=== PATIENT | female | born 2005 | race Caucasian/White ===

== ENCOUNTER 2024-01-27 09:43 | Emergency (ER) | payer OTHER, SELFPAY ==
[2024-01-27 09:47] VITALS: BP 141/94
--- NOTE | 2024-01-27 11:51 | ED.GENMED ---
History of Present Illness
General
Chief Complaint: Musculo-Skeletal Complaint
Source: patient
Exam Limitations: none
Time Seen by Provider: 01/27/24 10:59
Nursing documentation reviewed up to this point in time: agreed with
Travel History
Have you had any contact with someone who has COVID-19?: No
Do you have any symptoms of coronavirus? Fever > 100 degrees, chills, cough, shortness of breath, sore throat, loss of taste or smell, muscle aches, or headache?: No
History of Present Illness
History of Present Illness:
PT IS A 18 Y/O f right hand dominant
here with left 5th finger injury when she was at work this morning 930 am
she accudentally crushed it in a meat stamper
she has no wounds
thre is some bruising under the nail plate
painful ROM
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
sore to touch
Past History
Past History
ED Past Medical History: Psychiatric (Anxiety, Depression)
ED Past Surgical History: Other (Hyperparathyroid surgery)
Social History
Tobacco: Vaping
Alcohol: Occasional
Drug: Marijuana
Personal: Single
Living: with family
Review of Systems
Review of Systems
Allergies reviewed?: Yes
All Other Systems: Not applicable
Phy Exam
Physical Exam
Physical Exam:
GENERAL: Alert , in no apparent distress, comfortable at rest
HEAD: NCAT
CV: cap refill intact
NEUROLOGICAL: Alert and oriented, no focal neuro deficits, , 5/5 strength, sensation intact, ambulation slight limp right leg
SKIN: Warm and dry,
MUSCULOSKELETAL: left 5th fingertip slightly swollen, tender distal fingertip with a small speck of blood under the nail plate (subungal)
not > 50% of the nail plate
normal sensation
npainful flexion but able to range it at the DIP
no proximal tenderness
PSYCH: Normal and appropriate interaction.
Course
Orders/Labs/Results
Orders:
Orders
01/27/24 09:50
Finger(s)/Thumb 2 View Lt [CR Finger(s)/thumb Min 2 Vw Lt] Urgent
Comment:
Reason For Exam: injury
Indicate Which Finger:: Little Finger
Vital Signs
Initial and Last Documented VS:
Initial Vital Signs
Temp Pulse Resp BP Pulse Ox
98 F 111 16 141/94 98
01/27/24 09:47 01/27/24 09:47 01/27/24 09:47 01/27/24 09:47 01/27/24 09:47
Last Documented Vital Signs
Temp Pulse Resp BP Pulse Ox
98 F 111 16 141/94 98
01/27/24 09:47 01/27/24 09:47 01/27/24 09:47 01/27/24 09:47 01/27/24 09:47
MDM/Problems Addressed
Differential Diagnosis Includes:
finger contusion, fracture, subungal hematoma
MDM/Problems Addressed:
18 y/o F with left 5th fingertip crush injury today at work
small subungal hematoma
no wounds
xrays indep reviewed by me and neg for fx
finger splint for comfort
ice
nsaids
*Critical Care Note
Total Time (30-74mins, 75-104mins- exclusive of procedures): Not Applicable
ED Attending Note
-
Portions of this chart may have been created with voice recognition software.� Occasional wrong word or��sound alike� substitutions may have occurred due to the inherent limitations of voice recognition software.
Discharge Plan
Departure
Patient Disposition: Home (Routine Discharge)
Date of Disposition: 01/27/24
Time of Disposition: 11:57
Patient with high blood pressure during this ER visit?: No
Condition: Fair
Covid-19: Not Applicable
Discharge Problem:
Contusion of finger
Instructions: Contusion (DC)
Prescriptions:
No Action
ibuprofen 200 MG tablet
400 - 600 mg PO Q6HPRN PRN (Reason: aches and pain)
methylphenidate HCl [Concerta] 36 MG tablet extended release 24hr
36 mg PO DAILY
cholecalciferol (vitamin D3) 2,000 UNIT tablet
2,000 unit PO DAILY
sertraline 100 MG tablet
100 mg PO DAILY
ondansetron 4 MG tablet,disintegrating
4 mg PO TIDPRN PRN (Reason: nausea/vomiting) Qty: 8 0RF
metoclopramide HCl [Reglan] 5 mg tablet
5 mg PO DAILY PRN (Reason: HEADACHE) Qty: 7 0RF
Referrals:
Wei Hendricks MD [Family Provider] - Follow up in 2-3 days
Activity Restrictions/Additional Instructions:
YOUR XRAY SHOWED NO FRACTURE
YOU LIKELY BRUISED YOUR FINGERTIP
ICE OFF AND ON
MOTRIN EVERY 8 HOURS NEEDED FOR GABE
WEAR THE SPLINT NEEDED FOR COMFORT
FOLLOW UP WITH [facility] NEEDED THIS WEEK
RETURN FOR ANY COCNERNS.
Interventions
Interventions:
*Risk Screen - Suicide Last Done: 01/27/24 09:47
*General Assessment Last Done: 01/27/24 09:47
*Neglect/Abuse Screening Last Done: 01/27/24 09:47
ED-Musculoskeletal Assessment Last Done: 01/27/24 10:07
Discharge Date and Time
Print Language: KINYARWANDA
[2024-01-27 12:08] VITALS: BP 106/72
== END 2024-01-27 12:10 | disposition home or self-care (01) ==
LOC: EMR 09:43
PROVIDERS: EMERGENCY PHYSICIAN Emergency Medicine; FAMILY PHYSICIAN Family Medicine
DX: S60.052A Contusion of left little finger without damage to nail, initial encounter (principal); W23.0XXA Caught, crushed, jammed, or pinched between moving objects, initial encounter; Y99.0 Civilian activity done for income or pay; F41.8 Other specified anxiety disorders; F17.290 Nicotine dependence, other tobacco product, uncomplicated
CPT/HCPCS: 99283; 29130; 73140

== ENCOUNTER 2024-06-17 06:45 | Emergency (ER) | payer OTHER, SELFPAY ==
[2024-06-17 06:50] VITALS: BP 139/86
[2024-06-17 07:42] VITALS: BMI 25.0
--- NOTE | 2024-06-17 07:43 | ED.GENMED ---
History of Present Illness
General
Chief Complaint: Abdominal Symptoms
Source: patient
Exam Limitations: none
Time Seen by Provider: 06/17/24 07:32
Nursing documentation reviewed up to this point in time: agreed with
History of Present Illness
History of Present Illness:
Patient is a 19-year-old female who presents to the ER for evaluation of nausea and vomiting for the past several days. Patient is not able to keep anything down including liquids. She denies any associated fevers abdominal pain. No sick contacts
at home. She is on Depo and therefore has a history of irregular periods.
No prior history of .
Past History
Past History
ED Past Medical History: Psychiatric (Anxiety, Depression)
ED Past Surgical History: Other (Hyperparathyroid surgery)
Social History
Tobacco: Vaping
Alcohol: Occasional
Drug: Marijuana
Personal: Single
Living: with family
Review of Systems
Review of Systems
Allergies reviewed?: Yes
All Other Systems: ROS reviewed and negative except as documented in HPI and ROS
Constitutional: Reports no symptoms; Denies fever, fatigue or chills
Respiratory: Reports no symptoms
Cardiac: Reports no symptoms
ABD/GI: Reports nausea and vomiting; Denies abdominal pain or diarrhea
: Reports no symptoms; Denies flank pain, urgency or discharge
Musculoskeletal: Reports no symptoms
Skin: Reports no symptoms
Neurological: Reports no symptoms
Psychiatric: Reports no symptoms
Phy Exam
General Physical Exam
General Presentation: no apparent distress
General age: appears stated age
General Skin: warm and dry
General Habitus: normal
General Mental: alert
General Hydration: dry mucous membranes
Cardiovascular Exam
Cardiovascular Exam: regular rate/rhythm
Pulmonary Exam
Pulmonary Exam: lungs clear
Gastrointestinal Exam
Gastrointestinal Exam: non tender and soft
Neurological Exam
Neurological Exam: alert and oriented x3
Musculoskeletal Exam
Musculoskeletal Exam: full ROM
Skin Exam
Skin Exam: normal color and warm/dry
Psychiatric Exam
Psychiatric Exam: normal mood/affect
Course
Orders/Labs/Results
Orders:
Orders
06/17/24 07:47
Beta HCG Quantitative Urgent
Comment: ADD ON PER
Complete Blood Count/With Diff Urgent
Comprehensive Metabolic Panel Urgent
HCG, Serum Qualitative Screen Urgent
Comment: ADD ON
Lipase Urgent
Urinalysis Reflex To Culture Urgent
Date Specimen was Collected: 06/17/24
Time Specimen was Collected: 07:46
06/17/24 07:58
0.9% Sodium Chloride 1000 ml [Nss] 1,000 ml IV BOLUS
06/17/24 07:59
Add On- LAB Urgent
Tests Added?: hcg qualitative
06/17/24 08:04
Electrocardiogram (*1) Stat
Reason for Study: Other
Other Reason for Exam: chest pain
EKG- Treatment ONCE
Ondansetron Injectable [Zofran] 4 mg IV NOW STA
Abnormal Lab Results
06/17/24
07:47
Absolute Lymphs (auto) 0.7 L 10^3/uL
(1.2-3.4)
Neutrophils % 80.3 H %
(42.2-75.2)
Lymphocytes % 13.2 L %
(20.5-51.1)
Creatinine 0.5 L mg/dL
(0.6-1.0)
Glucose 102 H mg/dl
(70-99)
Total Bilirubin 2.0 H mg/dl
(0.2-1.3)
Urine Ketones 3+ A
(Negative)
06/17/24 07:47
06/17/24 07:47
Vital Signs
Initial and Last Documented VS:
Initial Vital Signs
Temp Pulse Resp BP Pulse Ox
98.9 F 118 20 139/86 96
06/17/24 06:50 06/17/24 06:50 06/17/24 06:50 06/17/24 06:50 06/17/24 06:50
Last Documented Vital Signs
Temp Pulse Resp BP Pulse Ox
98.9 F 81 13 113/75 98
06/17/24 06:50 06/17/24 10:00 06/17/24 10:00 06/17/24 10:00 06/17/24 10:00
MDM/Problems Addressed
Differential Diagnosis Includes:
Not limited to viral syndrome, less likely , dehydration
MDM/Problems Addressed:
Patient is a 19-year-old female on Depo-Provera presents with nausea vomiting for the past 3 days. Patient has no abdominal pain no fever chills no recent illness is afebrile here. Abdomen soft nontender. Patient found to be incidentally
with a positive hCG. She is on Depo she reports she was about 3 days late for her last Depo shot but she did take a test several days ago which was negative.
She has no prior history pregnancies no complaints of vaginal discharge. Patient does follow with [facility] and has actually made an appointment while she was here in the ER for 25 July. She reports she does not plan on
keeping this .
Patient was treated for her nausea and vomiting here in the ER given fluids and now feels much better tolerating shravan sapna will DC home.
*Critical Care Note
Total Time (30-74mins, 75-104mins- exclusive of procedures): Not Applicable
ED Attending Note
-
Portions of this chart may have been created with voice recognition software.� Occasional wrong word or��sound alike� substitutions may have occurred due to the inherent limitations of voice recognition software.
Discharge Plan
Departure
Patient Disposition: Home (Routine Discharge)
Date of Disposition: 06/17/24
Time of Disposition: 10:15
Patient with high blood pressure during this ER visit?: Yes
Condition: Fair
Covid-19: Not Applicable
Discharge Problem:
, Nausea & vomiting
Instructions: Nausea and Vomiting, Adult (DC)
Prescriptions:
No Action
ibuprofen 200 MG tablet
400 - 600 mg PO Q6HPRN PRN (Reason: aches and pain)
quetiapine [Seroquel] 200 mg Tablet
200 mg PO HS
sertraline [Zoloft] 50 mg Tablet
150 mg PO DAILY
medroxyprogesterone [Depo-Provera Contraceptive] 150 mg/mL Suspension
150 mg IM [id number]
metoclopramide HCl [Reglan] 5 mg tablet
10 mg PO DAILY PRN (Reason: HEADACHE)
Referrals:
Wei Hendricks MD [Family Provider] -
Activity Restrictions/Additional Instructions:
As discussed your blood work is positive for . You were treated for nausea here in the ER. Continue to stay well hydrated .
follow-up with gynecology as scheduled and return if any worsening of symptoms
Interventions
Interventions:
*Risk Screen - Suicide Last Done: 06/17/24 06:50
*General Assessment Last Done: 06/17/24 07:42
*Neglect/Abuse Screening Last Done: 06/17/24 06:50
ED- Fall Risk Assessment Last Done: 06/17/24 07:42
*ED COVID-19 Vaccine History Last Done: 06/17/24 06:50
*Nursing Disposition Last Done: 06/17/24 10:26
LT-Hcxemv-Gjooesjarc Assessment Last Done: 06/17/24 07:42
Discharge Date and Time
Discharge Date/Time: 06/17/24 10:26
Print Language: DANISH
[2024-06-17 08:00] VITALS: BP 124/68
[2024-06-17] MEDS: NSS 1000 IV (08:00)
[2024-06-17] MEDS: ZOFRAN 4 MG IV (08:09)
[2024-06-17 08:12] LABS: % Basophils 0.4 % (0-2); % Eosinophils 0.4 % (0-6); % Immature Granulocytes 0.2 % (0-0.5); % Lymphocytes 13.2 % (20.5-51.1); % Monocytes 5.5 % (1.7-9.3); % Neutrophils 80.3 % (42.2-75.2); Absolute Lymphocytes 0.7 10^3/uL (1.2-3.4); Absolute Monocytes 0.3 10^3/uL (0.1-0.6); Absolute Neutrophils 4.1 10^3/uL (1.4-6.5); Hematocrit 38.3 % (37.0-47.0); Hemoglobin 13.6 g/dL (12.0-16.0); Mean Corp Hgb Conc. 35.5 g/dL (33.0-37.0); Mean Corpuscular Hgb 29.9 pg (27.0-31.0); Mean Corpuscular Volume 84.2 fL (81.0-99.0); Mean Platelet Volume 10.3 fL (7.4-10.4); Nucleated Red Blood Cells % 0 %; Platelet Count 246 10^3/uL (130-400); Red Blood Cell Count 4.55 10^6/uL (4.20-5.40); Red Cell Dist. Width 12.6 % (11.5-14.5); White Blood Cell Count 5.1 10^3/uL (4.8-10.8)
[2024-06-17 08:30] LABS: ALT (SGPT) 22 U/L (0-35); AST (SGOT) 21 U/L (14-36); Albumin 4.5 g/dl (3.5-5.0); Alkaline Phosphatase 67 U/L (38-126); Blood Urea Nitrogen 7 mg/dl (7-17); Calcium 9.5 mg/dl (8.4-10.2); Carbon Dioxide 22 mmol/L (22-30); Chloride 105 mmol/L (98-107); Estimated Creatinine Clearance > 125 ml/min; Glucose 102 mg/dl (70-99); Lipase 37 U/L (23-300); Potassium 3.7 mmol/L (3.5-5.1); Sodium 140 mmol/L (135-145); Total Protein 7.1 g/dl (6.3-8.2); eGFR > 60.00
[2024-06-17 09:00] VITALS: BP 118/68
[2024-06-17 09:06] LABS: HCG, Serum Qualitative Screen Positive
[2024-06-17 10:00] VITALS: BP 113/75
[2024-06-17 11:15] LABS: Urine Albumin Negative (Neg - Trace); Urine Bilirubin Negative (Negative); Urine Character Clear (Clear); Urine Color Yellow; Urine Glucose Negative (Negative); Urine Ketone 3+ (Negative); Urine Leukocyte Negative (Negative); Urine Nitrite Negative (Negative); Urine Occult Blood Negative (Negative); Urine Specific Gravity 1.015 (<1.030); Urine Urobilinogen Negative (Neg - 1+)
== END 2024-06-17 10:26 | disposition home or self-care (01) ==
LOC: EMR 06:45
PROVIDERS: Nurse Practitioner; EMERGENCY PHYSICIAN Emergency Medicine; FAMILY PHYSICIAN Family Medicine
DX: O21.9 Vomiting of pregnancy, unspecified (principal); Z3A.00 Weeks of gestation of pregnancy not specified; F17.290 Nicotine dependence, other tobacco product, uncomplicated
CPT/HCPCS: 99284; 96374; 96361; 80053; 81003; 83690; 84702; 84703; 85025; 93005

== ENCOUNTER 2024-06-25 17:58 | Emergency (ER) | payer OTHER, SELFPAY ==
--- NOTE | 2024-06-25 18:38 | ED.GENMED ---
ED Provider Triage
<Chela Pugh PA-C - Last Filed: 06/25/24 18:42>
-
Patient seen by provider in Triage?: Seen in Triage
Attestation: A medical screening examination has been initiated by a qualified medical provider. Based on the assessment performed at this time, it has been determined that an emergent medical condition may exist and the patient has been informed
that further medical evaluation and possible additional diagnostic testing may be needed.
HPI: 19yo female currently 7 weeks here with vomiting continuously since yesterday. Vomited 10+ times. No relief with Zofran. US yesterday at the OB which reportedly showed an intrauterine . Patient is not planning on keeping
the . No vaginal bleeding.
GENERAL: Alert , in no apparent distress
EYE: No visual abnormalities.
NECK: Trachea midline
ENT: No visible abnormalities.
LUNGS: No acute respiratory distress
NEUROLOGICAL: Alert and oriented
SKIN: Skin intact. No visible changes.
MUSCULOSKELETAL: Moving extremities normally
PSYCH: Normal and appropriate interaction.
This is a medical evaluation conducted in person to initiate diagnostic evaluation and provide initial therapeutics. Please see further documentation by the treating clinician.
CBC, CMP, magnesium, and HCG ordered.
History of Present Illness
<Chela Pugh PA-C - Last Filed: 06/25/24 18:42>
General
Chief Complaint: Abdominal Symptoms
Time Seen by Provider: 06/25/24 21:10
<LUIS F Epperson - Last Filed: 06/26/24 00:13>
General
Source: patient
Exam Limitations: none
History of Present Illness
History of Present Illness:
This is a 19 year old female that comes in with c/o vomiting. States that she has not been able to keep anything down. States that this started yesterday. States that she took Zofran but this did not help. States that she is about 7 weeks .
States that she is nausea, vomiting and has a headache. Denies any fever, chills, chest pain, SOB, abd pain, diarrhea, dizziness, urinary burning.
Past History
<Chela Pugh PA-C - Last Filed: 06/25/24 18:42>
Past History
ED Past Medical History: Psychiatric (Anxiety, Depression)
ED Past Surgical History: Other (Hyperparathyroid surgery)
Social History
Tobacco: Vaping
Alcohol: Occasional
Drug: Marijuana
Personal: Single
Living: with family
<LUIS F Epperson - Last Filed: 06/26/24 00:13>
Past History
ED Past Medical History: Other (Hyperparathyroidism, Vit D def, )
Social History
Tobacco: Vaping (Former)
Alcohol: None
Review of Systems
<LUIS F Epperson - Last Filed: 06/26/24 00:13>
Review of Systems
All Other Systems: ROS reviewed and negative except as documented in HPI and ROS
Constitutional: Reports no symptoms; Denies fever or chills
EENT: Reports no symptoms
Respiratory: Reports no symptoms; Denies cough or trouble breathing
Cardiac: Reports no symptoms; Denies chest pain
ABD/GI: Reports nausea and vomiting; Denies abdominal pain or diarrhea
: Reports no symptoms; Denies dysuria, frequency or urgency
Musculoskeletal: Reports no symptoms
Skin: Reports no symptoms
Neurological: Reports headache; Denies dizzy
Psychiatric: Reports no symptoms
Phy Exam
<LUIS F Epperson - Last Filed: 06/26/24 00:13>
General Physical Exam
General Presentation: no apparent distress
General age: appears stated age
General Skin: warm and dry
General Habitus: normal
General Mental: alert
General Hydration: appears well hydrated
ENT Exam
ENT Exam: TM's normal, pharynx normal and neck supple
Eye Exam
Eye Exam: EOMI
Cardiovascular Exam
Cardiovascular Exam: regular rate/rhythm, no edema, no murmur and normal peripheral pulses
Pulmonary Exam
Pulmonary Exam: lungs clear, no respiratory distress, no rales, chest non tender, no crackles, no rhonchi, no wheezing and no cough
Gastrointestinal Exam
Gastrointestinal Exam: normal bowel sounds, non tender, soft, no organomegaly, no pulsatile mass and non distended
Musculoskeletal Exam
Musculoskeletal Exam: full ROM and no edema
Skin Exam
Skin Exam: normal color, warm/dry, no rash and no petechia
Psychiatric Exam
Psychiatric Exam: normal mood/affect
Course
Deandralt;Chela Pugh PA-C - Last Filed: 06/25/24 18:42>
Orders/Labs/Results
Orders:
Orders
06/25/24 18:46
Complete Blood Count/With Diff Urgent
Comprehensive Metabolic Panel Urgent
HCG, Beta Quantitative [Beta HCG Quantitative] Urgent
Is this a screen?: No
Magnesium Urgent
06/25/24 21:22
0.9% Sodium Chloride 1000 ml [Nss] 1,000 ml IV BOLUS
Metoclopramide [Reglan] 10 mg IV NOW STA
Abnormal Lab Results
06/25/24
18:46
WBC 11.6 H 10^3/uL
(4.8-10.8)
Absolute Neuts (auto) 10.7 H 10^3/uL
(1.4-6.5)
Absolute Lymphs (auto) 0.5 L 10^3/uL
(1.2-3.4)
Neutrophils % 92.2 H %
(42.2-75.2)
Lymphocytes % 4.7 L %
(20.5-51.1)
Creatinine 0.5 L mg/dL
(0.6-1.0)
Glucose 130 H mg/dl
(70-99)
06/25/24 18:46
06/25/24 18:46
Vital Signs
Initial and Last Documented VS:
Initial Vital Signs
Temp Pulse Resp BP Pulse Ox
97.7 F 81 18 129/91 94
06/25/24 18:39 06/25/24 18:39 06/25/24 18:39 06/25/24 18:39 06/25/24 18:39
Last Documented Vital Signs
Temp Pulse Resp BP Pulse Ox
97.7 F 81 17 103/58 95
06/25/24 18:39 06/25/24 23:30 06/25/24 23:30 06/25/24 22:00 06/25/24 23:30
<LUIS F Epperson - Last Filed: 06/26/24 00:13>
Orders/Labs/Results
Orders:
Orders
06/25/24 18:46
Complete Blood Count/With Diff Urgent
Comprehensive Metabolic Panel Urgent
HCG, Beta Quantitative [Beta HCG Quantitative] Urgent
Is this a screen?: No
Magnesium Urgent
06/25/24 21:22
0.9% Sodium Chloride 1000 ml [Nss] 1,000 ml IV BOLUS
Metoclopramide [Reglan] 10 mg IV NOW STA
Abnormal Lab Results
06/25/24
18:46
WBC 11.6 H 10^3/uL
(4.8-10.8)
Absolute Neuts (auto) 10.7 H 10^3/uL
(1.4-6.5)
Absolute Lymphs (auto) 0.5 L 10^3/uL
(1.2-3.4)
Neutrophils % 92.2 H %
(42.2-75.2)
Lymphocytes % 4.7 L %
(20.5-51.1)
Creatinine 0.5 L mg/dL
(0.6-1.0)
Glucose 130 H mg/dl
(70-99)
06/25/24 18:46
06/25/24 18:46
Leukocytosis, hyperglycemia. HCG 225782.00
Vital Signs
Initial and Last Documented VS:
Initial Vital Signs
Temp Pulse Resp BP Pulse Ox
97.7 F 81 18 129/91 94
06/25/24 18:39 06/25/24 18:39 06/25/24 18:39 06/25/24 18:39 06/25/24 18:39
Last Documented Vital Signs
Temp Pulse Resp BP Pulse Ox
97.7 F 81 17 103/58 95
06/25/24 18:39 06/25/24 23:30 06/25/24 23:30 06/25/24 22:00 06/25/24 23:30
<LUIS F Epperson - Last Filed: 06/26/24 00:13>
MDM/Problems Addressed
Differential Diagnosis Includes:
Hyperemesis on ,
MDM/Problems Addressed:
This is a 19 year old female that comes in with c/o vomiting. States that she hasn't been able to keep anything down since yesterday.
Will check labs. give IV fluids and Medicate for vomiting.
Patient states that she is feeling better. Has tolerated oral fluids. Will sent a prescription for Reglan to help with nausea and vomiting. patient to follow up with the [facility]. Return with any concerns .
Chronic conditions affecting care:
NA
Acute Exacerbation and/or Progression of Chronic Illness:
NA
<LUIS F Epperson - Last Filed: 06/26/24 00:13>
*Pulse Oximetry
Patient hypoxic: no
*EKG
Interpreted by ED Provider?: NA
Rate: EKG- N/A
*[facility] Interpretation
Rate: normal
Heart Rate: 92
Rhythm: sinus
*Critical Care Note
Total Time (30-74mins, 75-104mins- exclusive of procedures): Not Applicable
ED Attending Note
<Chela Pugh PA-C - Last Filed: 06/25/24 18:42>
-
Portions of this chart may have been created with voice recognition software.� Occasional wrong word or��sound alike� substitutions may have occurred due to the inherent limitations of voice recognition software.
Discharge Plan
Departure
Patient Disposition: Home (Routine Discharge)
Date of Disposition: 06/26/24
Time of Disposition: 00:06
Patient with high blood pressure during this ER visit?: No
Condition: Good
Covid-19: Not Applicable
Discharge Problem:
Vomiting during
Instructions: Nausea and Vomiting, Adult (DC)
Prescriptions:
No Action
ibuprofen 200 MG tablet
400 - 600 mg PO Q6HPRN PRN (Reason: aches and pain)
quetiapine [Seroquel] 200 mg Tablet
200 mg PO HS
sertraline [Zoloft] 50 mg Tablet
150 mg PO DAILY
medroxyprogesterone [Depo-Provera Contraceptive] 150 mg/mL Suspension
150 mg IM [id number]
metoclopramide HCl [Reglan] 5 mg tablet
10 mg PO DAILY PRN (Reason: HEADACHE)
Referrals:
Wei Hendricks MD [Family Provider] -
Activity Restrictions/Additional Instructions:
As discussed, your blood work shows that your Blood sugar is elevated. Please see your family doctor for a fasting blood sugar. Please increase your water intake to 8-8oz glasses daily. Please use your Zofran that you have at home for any
nausea/vomiting. Follow up with the family doctor and your [facility] for further evaluation. IF YOU HAVE ANY OTHER CONCERNS PLEASE RETURN TO THE EMERGENCY ROOM.
Interventions
Interventions:
*Risk Screen - Suicide Last Done: 06/25/24 20:45
*General Assessment Last Done: 06/25/24 20:45
*Neglect/Abuse Screening Last Done: 06/25/24 20:45
ED- Fall Risk Assessment Last Done: 06/25/24 20:49
*ED COVID-19 Vaccine History Last Done: 06/25/24 20:45
PY-Vjuoqz-Vcxaahvccf Assessment Last Done: 06/25/24 20:49
Discharge Date and Time
Print Language: [place]
[2024-06-25 18:39] VITALS: BP 129/91
[2024-06-25 18:57] LABS: % Basophils 0.3 % (0-2); % Immature Granulocytes 0.3 % (0-0.5); % Lymphocytes 4.7 % (20.5-51.1); % Monocytes 2.5 % (1.7-9.3); % Neutrophils 92.2 % (42.2-75.2); Absolute Lymphocytes 0.5 10^3/uL (1.2-3.4); Absolute Monocytes 0.3 10^3/uL (0.1-0.6); Absolute Neutrophils 10.7 10^3/uL (1.4-6.5); Hematocrit 38.7 % (37.0-47.0); Hemoglobin 13.5 g/dL (12.0-16.0); Mean Corp Hgb Conc. 34.9 g/dL (33.0-37.0); Mean Corpuscular Hgb 29.5 pg (27.0-31.0); Mean Corpuscular Volume 84.5 fL (81.0-99.0); Mean Platelet Volume 10.3 fL (7.4-10.4); Nucleated Red Blood Cells % 0 %; Platelet Count 267 10^3/uL (130-400); Red Blood Cell Count 4.58 10^6/uL (4.20-5.40); Red Cell Dist. Width 12.8 % (11.5-14.5); White Blood Cell Count 11.6 10^3/uL (4.8-10.8)
[2024-06-25 19:18] LABS: ALT (SGPT) 25 U/L (0-35); AST (SGOT) 23 U/L (14-36); Albumin 4.9 g/dl (3.5-5.0); Alkaline Phosphatase 65 U/L (38-126); Blood Urea Nitrogen 10 mg/dl (7-17); Carbon Dioxide 22 mmol/L (22-30); Chloride 103 mmol/L (98-107); Glucose 130 mg/dl (70-99); Magnesium 1.7 mg/dl (1.6-2.3); Potassium 4.7 mmol/L (3.5-5.1); Sodium 140 mmol/L (135-145); Total Bilirubin 1.1 mg/dl (0.2-1.3); Total Protein 7.7 g/dl (6.3-8.2); eGFR > 60.00
[2024-06-25 20:44] VITALS: BMI 24.4
[2024-06-25 20:48] VITALS: BP 124/80
[2024-06-25 21:00] VITALS: BP 127/82
[2024-06-25] MEDS: REGLAN 10 MG IV (21:37)
[2024-06-25] MEDS: NSS 1000 IV (21:37)
[2024-06-25 22:00] VITALS: BP 103/58
== END 2024-06-26 00:17 | disposition home or self-care (01) ==
LOC: EMR 17:58
PROVIDERS: Physician Assistant; EMERGENCY PHYSICIAN Student in an Organized Health Care Education/Training Program; FAMILY PHYSICIAN Family Medicine
DX: O21.9 Vomiting of pregnancy, unspecified (principal); O99.341 Other mental disorders complicating pregnancy, first trimester; F41.8 Other specified anxiety disorders; Z3A.01 Less than 8 weeks gestation of pregnancy; Z87.891 Personal history of nicotine dependence
CPT/HCPCS: 99283; 96374; 96361; 80053; 83735; 84702; 85025

== ENCOUNTER 2024-09-13 16:44 | Emergency (ER) | payer OTHER, SELFPAY ==
[2024-09-13 16:46] VITALS: BP 135/98
--- NOTE | 2024-09-13 16:50 | ED.GENMED ---
ED Provider Triage
<Oziel Anderson PA-C - Last Filed: 09/13/24 16:51>
-
Patient seen by provider in Triage?: Seen in Triage
19-year-old female presents with lower abdominal cramping and vaginal bleeding. She is currently about 5 weeks along. She states she passed some clots. She denies chest pain or shortness of breath.
Vital signs are stable. Will start workup at triage with CBC CMP, type and screen, beta hCG and will order ultrasound.
Seen by provider in triage. Needs further assessment
History of Present Illness
<Oziel Anderson PA-C - Last Filed: 09/13/24 16:51>
General
Chief Complaint: Problems
Time Seen by Provider: 09/13/24 20:17
<Edgardo Duke MD - Last Filed: 09/14/24 17:10>
General
Source: patient
Exam Limitations: none
Nursing documentation reviewed up to this point in time: agreed with
History of Present Illness
History of Present Illness:
Patient presents to ED secondary to vaginal bleeding over the past 24 hours, which initially started with spotting, now has progressed to passage of some blood clots. Denies fever or chills. Patient reports mild lower abdominal cramping sensation.
Denies nausea or vomiting. Denies trauma. Denies dizziness. Denies shortness of breath. Denies weakness. Denies headache. Denies trauma. Patient states that her last menstrual period was last month with positive home test. Patient
has initial consultation with her BOOKING SUPERVISOR physician in 2 weeks. Of note, patient reports 'chemical ' in June, which unfortunately resulted in miscarriage.
Past History
<Oziel Anderson PA-C - Last Filed: 09/13/24 16:51>
Past History
ED Past Medical History: Psychiatric (Anxiety, Depression) and Other (Hyperparathyroidism, Vit D def, )
ED Past Surgical History: Other (Hyperparathyroid surgery)
Social History
Tobacco: Vaping (Former)
Alcohol: None
Drug: Marijuana
Personal: Single
Living: with family
Review of Systems
<Edgardo Duke MD - Last Filed: 09/14/24 17:10>
Review of Systems
Allergies reviewed?: Yes
All Other Systems: ROS reviewed and negative except as documented in HPI and ROS
Constitutional: Reports no symptoms
EENT: Reports no symptoms
Respiratory: Reports no symptoms
Cardiac: Reports no symptoms
ABD/GI: Reports abdominal pain; Denies nausea or vomiting
: Reports bleeding
Musculoskeletal: Reports no symptoms
Skin: Reports no symptoms
Neurological: Reports no symptoms
Phy Exam
<Edgardo Duke MD - Last Filed: 09/14/24 17:10>
Physical Exam
Physical Exam:
Physical Exam
General: no apparent distress, not acutely ill. afebrile
Head: nc/at. eomi
Neck: supple. normal range of motion.
Abdomen: normal bowel sounds. not tender.
Neuro: alert and oriented. no focal neurological deficits
Skin: no rash
Psychiatric: well kept. interactive and cooperative
Extremities: no edema. no calf tenderness.
Course
<Oziel Anderson PA-C - Last Filed: 09/13/24 16:51>
Orders/Labs/Results
Orders:
Orders
09/13/24 16:46
US W Transvaginal Urgent
Reason For Exam: bleeding, pain
09/13/24 17:07
Type+Screen Urgent
Comprehensive Metabolic Panel Urgent
HCG, Beta Quantitative [Beta HCG Quantitative] Urgent
Is this a screen?: No
09/13/24 17:08
Complete Blood Count/With Diff Urgent
09/13/24 20:25
ABO2 Urgent
BBK Wristband Number:
Associate notified that ABO2 has been ordered: [id number]
Date: 09/13/24
Time: 17:20
Development Professional ID: [id number]
Abnormal Lab Results
09/13/24 09/13/24
17:07 17:08
WBC 3.9 L 10^3/uL
(4.8-10.8)
Hct 35.7 L %
(37.0-47.0)
BUN 5 L mg/dl
(7-17)
09/13/24 17:08
09/13/24 17:07
Vital Signs
Initial and Last Documented VS:
Initial Vital Signs
Temp Pulse Resp BP Pulse Ox
98.2 F 108 16 135/98 97
09/13/24 16:46 09/13/24 16:46 09/13/24 16:46 09/13/24 16:46 09/13/24 16:46
Last Documented Vital Signs
Temp Pulse Resp BP Pulse Ox
98.2 F 70 18 119/79 100
09/13/24 16:46 09/13/24 20:15 09/13/24 20:15 09/13/24 20:15 09/13/24 20:15
<Edgardo Duke MD - Last Filed: 09/14/24 17:10>
Orders/Labs/Results
Orders:
Orders
09/13/24 16:46
US W Transvaginal Urgent
Reason For Exam: bleeding, pain
09/13/24 17:07
Type+Screen Urgent
Comprehensive Metabolic Panel Urgent
HCG, Beta Quantitative [Beta HCG Quantitative] Urgent
Is this a screen?: No
09/13/24 17:08
Complete Blood Count/With Diff Urgent
09/13/24 20:25
ABO2 Urgent
BBK Wristband Number:
Associate notified that ABO2 has been ordered: [id number]
Date: 09/13/24
Time: 17:20
Development Professional ID: [id number]
Abnormal Lab Results
09/13/24 09/13/24
17:07 17:08
WBC 3.9 L 10^3/uL
(4.8-10.8)
Hct 35.7 L %
(37.0-47.0)
BUN 5 L mg/dl
(7-17)
09/13/24 17:08
09/13/24 17:07
Vital Signs
Initial and Last Documented VS:
Initial Vital Signs
Temp Pulse Resp BP Pulse Ox
98.2 F 108 16 135/98 97
09/13/24 16:46 09/13/24 16:46 09/13/24 16:46 09/13/24 16:46 09/13/24 16:46
Last Documented Vital Signs
Temp Pulse Resp BP Pulse Ox
98.2 F 70 18 119/79 100
09/13/24 16:46 09/13/24 20:15 09/13/24 20:15 09/13/24 20:15 09/13/24 20:15
Information
Weeks gestation: N/A
Location: N/A
<Edgardo Duke MD - Last Filed: 09/14/24 17:10>
MDM/Problems Addressed
MDM/Problems Addressed:
History and exam along with ultrasound concerning for early IUP versus threatened miscarriage versus completed miscarriage. Patient otherwise remains afebrile, helically stable, and nontoxic-appearing. H&H stable. Blood type noted. Patient
stable to be discharged home at this time, with recommendation to follow-up with her [employer]OOKING SUPERVISOR physician for reevaluation, or return to ED with worsening symptoms. Patient expresses understanding at time of discharge.
<Edgardo Duke MD - Last Filed: 09/14/24 17:10>
*Critical Care Note
Total Time (30-74mins, 75-104mins- exclusive of procedures): Not Applicable
ED Attending Note
<Oziel Anderson PA-C - Last Filed: 09/13/24 16:51>
-
Portions of this chart may have been created with voice recognition software.� Occasional wrong word or��sound alike� substitutions may have occurred due to the inherent limitations of voice recognition software.
Discharge Plan
Departure
Patient Disposition: Home (Routine Discharge)
Date of Disposition: 09/13/24
Time of Disposition: 21:31
Patient with high blood pressure during this ER visit?: Yes
Condition: Good
Discharge Problem:
Threatened miscarriage
Instructions: Threatened Miscarriage (DC)
Prescriptions:
No Action
ibuprofen 200 MG tablet
400 - 600 mg PO Q6HPRN PRN (Reason: aches and pain)
quetiapine [Seroquel] 200 mg Tablet
200 mg PO HS
sertraline [Zoloft] 50 mg Tablet
150 mg PO DAILY
medroxyprogesterone [Depo-Provera Contraceptive] 150 mg/mL Suspension
150 mg IM [id number]
metoclopramide HCl [Reglan] 5 mg tablet
10 mg PO DAILY PRN (Reason: HEADACHE)
Referrals:
Estelita Spencer MD [Active] -
Wei Hendricks MD [Family Provider] -
Activity Restrictions/Additional Instructions:
As discussed, please follow-up with your BOOKING SUPERVISOR physician for further evaluation and treatment. Please consider return to ED with worsening symptoms, i.e. fever/worsening bleeding, especially if associated with dizziness/shortness of
breath/weakness.
Interventions
Interventions:
*Risk Screen - Suicide Last Done: 09/13/24 16:46
*General Assessment Last Done: 09/13/24 16:46
*Neglect/Abuse Screening Last Done: 09/13/24 16:46
ED- Fall Risk Assessment Last Done: 09/13/24 20:15
*ED COVID-19 Vaccine History Last Done: 09/13/24 16:46
*Nursing Disposition Last Done: 09/13/24 21:38
ED-Female Genitourinary Assessment Last Done: 09/13/24 20:15
Discharge Date and Time
Discharge Date/Time: 09/13/24 21:39
Print Language: MARTINIQUAIS
[2024-09-13 17:21] LABS: % Basophils 0.5 % (0-2); % Eosinophils 1.8 % (0-6); % Immature Granulocytes 0.3 % (0-0.5); % Lymphocytes 34.5 % (20.5-51.1); % Monocytes 6.2 % (1.7-9.3); % Neutrophils 56.7 % (42.2-75.2); Absolute Eosinophils 0.1 10^3/uL (0-0.7); Absolute Lymphocytes 1.3 10^3/uL (1.2-3.4); Absolute Monocytes 0.2 10^3/uL (0.1-0.6); Absolute Neutrophils 2.2 10^3/uL (1.4-6.5); Hematocrit 35.7 % (37.0-47.0); Hemoglobin 12.3 g/dL (12.0-16.0); Mean Corp Hgb Conc. 34.5 g/dL (33.0-37.0); Mean Corpuscular Hgb 29.3 pg (27.0-31.0); Mean Platelet Volume 10.1 fL (7.4-10.4); Nucleated Red Blood Cells % 0 %; Platelet Count 222 10^3/uL (130-400); Red Cell Dist. Width 12.8 % (11.5-14.5); White Blood Cell Count 3.9 10^3/uL (4.8-10.8)
[2024-09-13 17:32] LABS: ALT (SGPT) 20 U/L (0-35); AST (SGOT) 24 U/L (14-36); Albumin 4.7 g/dl (3.5-5.0); Alkaline Phosphatase 71 U/L (38-126); Blood Urea Nitrogen 5 mg/dl (7-17); Calcium 9.5 mg/dl (8.4-10.2); Carbon Dioxide 26 mmol/L (22-30); Chloride 100 mmol/L (98-107); Glucose 93 mg/dl (70-99); Potassium 3.7 mmol/L (3.5-5.1); Sodium 137 mmol/L (135-145); Total Bilirubin 0.9 mg/dl (0.2-1.3); Total Protein 7.5 g/dl (6.3-8.2); eGFR > 60.00
[2024-09-13 17:47] LABS: Beta HCG Quantitative 7.71 mIU/ml
[2024-09-13 20:15] VITALS: BP 119/79; BMI 26.4
== END 2024-09-13 21:39 | disposition home or self-care (01) ==
LOC: EMR 16:44
PROVIDERS: Physician Assistant; EMERGENCY PHYSICIAN Emergency Medicine; FAMILY PHYSICIAN Family Medicine
DX: O20.0 Threatened abortion (principal); Z3A.01 Less than 8 weeks gestation of pregnancy; Z87.891 Personal history of nicotine dependence
CPT/HCPCS: 99284; 76801; 76817; 80053; 84702; 85025; 86850; 86900; 86901

== ENCOUNTER 2025-03-17 14:43 | Emergency (ER) | payer OTHER, SELFPAY ==
[2025-03-17 14:47] VITALS: BP 141/91
[2025-03-17 15:02] LABS: Hematocrit 35.5 % (37.0-47.0); Hemoglobin 12.5 g/dL (12.0-16.0); Mean Corp Hgb Conc. 35.2 g/dL (33.0-37.0); Mean Corpuscular Volume 84.7 fL (81.0-99.0); Nucleated Red Blood Cells % 0 %; Platelet Count 186 10^3/uL (130-400); Red Cell Dist. Width 12.6 % (11.5-14.5)
[2025-03-17 15:26] LABS: ALT (SGPT) 31 U/L (0-35); AST (SGOT) 26 U/L (14-36); Albumin 4.4 g/dl (3.5-5.0); Alkaline Phosphatase 72 U/L (38-126); Blood Urea Nitrogen 6 mg/dl (7-17); Calcium 9.4 mg/dl (8.4-10.2); Carbon Dioxide 25 mmol/L (22-30); Chloride 105 mmol/L (98-107); Glucose 113 mg/dl (70-99); Potassium 3.7 mmol/L (3.5-5.1); Sodium 136 mmol/L (135-145); Total Protein 7.3 g/dl (6.3-8.2); eGFR > 60.00
[2025-03-17 16:09] LABS: Beta HCG Quantitative 115590.00 mIU/ml
--- NOTE | 2025-03-17 17:18 | ED.GENMED ---
History of Present Illness
General
Chief Complaint: Problems
Time Seen by Provider: 03/17/25 16:40
History of Present Illness
History of Present Illness:
19-year-old female, G3P 0 weeks gestational age, presents to the emergency department for evaluation of midline low back pain that began this morning associated with mild headache. Denies any vaginal discharge or bleeding. 2 prior first trimester
miscarriages that she was concern for possible miscarriage today. Denies any anterior abdominal pain or pelvic pain. No fevers or chills. No dysuria or urgency
Past History
Past History
ED Past Medical History: Psychiatric (Anxiety, Depression) and Other (Hyperparathyroidism, Vit D def, )
ED Past Surgical History: Other (Hyperparathyroid surgery)
Social History
Tobacco: Vaping (Former)
Alcohol: None
Drug: Marijuana
Personal: Single
Living: with family
Review of Systems
Review of Systems
Allergies reviewed?: Yes
All Other Systems: ROS reviewed and negative except as documented in HPI and ROS
Phy Exam
Physical Exam
Physical Exam:
GEN: Well appearing, NAD, WDWN
HEENT: Oral mucosa moist, no scleral icterus
Cardiac: Regular rate
Lung: No respiratory distress, no tachypnea
Abd: Soft, non tender
MSK: No gross deformity or injuries. No reproducible tenderness to midline low back
Skin: Good color, no pallor or jaundice, no rashes
Neuro: AO x3, moves all extremities freely
Psych: Calm, cooperative
Course
Orders/Labs/Results
Orders:
Orders
03/17/25 14:49
IV Insert/Care/Rem.- Treatment PRN
Pulse Ox/spot Check [RESP] Urgent
Quantity: 1
Special Instructions: ON ROOM AIR
03/17/25 14:50
US 1st Trimester Urgent
Comment:
Reason For Exam:
03/17/25 14:55
Type+Screen Urgent
Beta HCG Quantitative Urgent
Is this a screen?: No
CMP [Comprehensive Metabolic Panel] Urgent
Complete Blood Count/With Diff Urgent
03/17/25 17:09
Urinalysis Reflex To Culture Urgent
Date Specimen was Collected: 03/17/25
Time Specimen was Collected: 17:07
Urine Microscopic Reflex Cult Urgent
Urine Culture Urgent
SOHAIL Source: U
Specimen Description:
Date Specimen was Collected: 03/17/25
Time Specimen was Collected: 17:07
Abnormal Lab Results
03/17/25 03/17/25
14:55 17:09
RBC 4.19 L 10^6/uL
(4.20-5.40)
Hct 35.5 L %
(37.0-47.0)
MPV 10.5 H fL
(7.4-10.4)
Absolute Lymphs (auto) 0.2 L 10^3/uL
(1.2-3.4)
Neutrophils % 90.1 H %
(42.2-75.2)
Lymphocytes % 2.7 L %
(20.5-51.1)
BUN 6 L mg/dl
(7-17)
Creatinine 0.5 L mg/dL
(0.6-1.0)
Glucose 113 H mg/dl
(70-99)
Urine Ketones 1+ A
(Negative)
Leukocyte Esterase Rfl 1+ A
(Negative)
Urine WBC (Reflex) 16-20 A /HPF
(0-5)
Urine Bacteria (Reflex) Few A
(Negative)
Urine Albumin (Reflex) 1+ A
(Neg - Trace)
03/17/25 14:55
03/17/25 14:55
Vital Signs
Initial and Last Documented VS:
Initial Vital Signs
Temp Pulse Resp BP Pulse Ox
98.5 F 132 20 141/91 97
03/17/25 14:47 03/17/25 14:47 03/17/25 14:47 03/17/25 14:47 03/17/25 14:47
Last Documented Vital Signs
Temp Pulse Resp BP Pulse Ox
98.5 F 132 20 141/91 97
03/17/25 14:47 03/17/25 14:47 03/17/25 14:47 03/17/25 14:47 03/17/25 17:19
Information
Weeks gestation: Weeks: (8)
Location: Location: (IUP)
MDM/Problems Addressed
MDM/Problems Addressed:
Ultrasound reveals a small subchorionic hemorrhage which may be causing the patient's low back pain, she has no active vaginal bleeding at this time. Urinalysis shows no evidence for infection, patient reassured. She did not hyperemesis type
symptoms as well as provided with a small prescription for Zofran as needed
*Pulse Oximetry
SaO2: 97
Oxygen Mode of Delivery: Room air
Patient hypoxic: no
*Critical Care Note
Total Time (30-74mins, 75-104mins- exclusive of procedures): Not Applicable
ED Attending Note
-
Portions of this chart may have been created with voice recognition software.� Occasional wrong word or��sound alike� substitutions may have occurred due to the inherent limitations of voice recognition software.
Discharge Plan
Departure
Patient Disposition: Home (Routine Discharge)
Date of Disposition: 03/17/25
Time of Disposition: 17:57
Patient with high blood pressure during this ER visit?: No
Discharge Problem:
Subchorionic hemorrhage in first trimester
Instructions: Subchorionic Bleeding
Prescriptions:
New
ondansetron 4 mg tablet,disintegrating
4 mg PO TIDPRN PRN (Reason: nausea/vomiting) Qty: 10 0RF
No Action
ibuprofen 200 MG tablet
400 - 600 mg PO Q6HPRN PRN (Reason: aches and pain)
quetiapine [Seroquel] 200 mg Tablet
200 mg PO HS
sertraline [Zoloft] 50 mg Tablet
150 mg PO DAILY
medroxyprogesterone [Depo-Provera Contraceptive] 150 mg/mL Suspension
150 mg IM [id number]
metoclopramide HCl [Reglan] 5 mg tablet
10 mg PO DAILY PRN (Reason: HEADACHE)
Referrals:
Wei Hendricks MD [Family Provider, Family Practice]
Activity Restrictions/Additional Instructions:
Strict pelvic rest: no vigorous exercise, no lifting >25 lbs, no intercourse, until cleared by your OBGYN
You may experience bleeding from the subchorionic hemorrhage, which can range from spotting to period like bleeding. This is typically brief and should not last more than a few days. If it is heavy bleeding accompanied by pelvic/back pain/cramping,
return to the ER for re-evaluation
Follow up with your OBGYN in 1-2 weeks
Interventions
Interventions:
*Risk Screen - Suicide Last Done: 03/17/25 14:47
*General Assessment Last Done: 03/17/25 14:47
*Neglect/Abuse Screening Last Done: 03/17/25 14:47
*Nursing Disposition Last Done: 03/17/25 18:25
ED-Female Genitourinary Assessment Last Done: 03/17/25 15:45
Discharge Date and Time
Discharge Date/Time: 03/17/25 18:26
Print Language: DIVEHI
[2025-03-17 17:50] LABS: Urine Character Clear (Clear)
[2025-03-17 19:09] LABS: Urine Red Blood Cell 0-2 /HPF (0-2); Urine Squamous Cell >30 /LPF (Few); Urine White Cell 16-20 /HPF (0-5)
== END 2025-03-17 18:26 | disposition home or self-care (01) ==
LOC: EMR 14:43
PROVIDERS: Physician Assistant; EMERGENCY PHYSICIAN Emergency Medicine; FAMILY PHYSICIAN Family Medicine; OTHER PHYSICIAN Obstetrics & Gynecology
DX: O20.8 Other hemorrhage in early pregnancy (principal); O26.891 Other specified pregnancy related conditions, first trimester; M54.50 Low back pain, unspecified; R51.9 Headache, unspecified; Z3A.08 8 weeks gestation of pregnancy; O99.341 Other mental disorders complicating pregnancy, first trimester; F41.9 Anxiety disorder, unspecified; F32.A Depression, unspecified; E55.9 Vitamin D deficiency, unspecified; E21.3 Hyperparathyroidism, unspecified; O99.331 Smoking (tobacco) complicating pregnancy, first trimester; F17.290 Nicotine dependence, other tobacco product, uncomplicated; Z88.1 Allergy status to other antibiotic agents
CPT/HCPCS: 99284; 76801; 80053; 81003; 81015; 84702; 85025; 86850; 86900; 86901; 87086